=== PATIENT | male | born 1970 | race Caucasian/White ===

== ENCOUNTER → 2018-12-11 | Outpatient (CLI) | payer BC ==
--- NOTE | 2018-12-11 15:56 | RAD ---
EXAM: AP view of both knees, lateral and tangential patellar views right knee DATE: 12/11/2018 12:00 AM INDICATION: Knee pain COMPARISON: No Prior FINDINGS: Right knee: No evidence of acute fracture or dislocation. Joint spaces are preserved without significant degenerative/proliferative change. Neutral patellar tracking. Physiologic joint fluid right knee. Single AP view left knee demonstrates no evidence for acute fracture or dislocation. Joint spaces are grossly preserved. IMPRESSION: 1. No evidence of acute fracture or dislocation. 2. Joint spaces are preserved without significant degenerative/proliferative change. Electronically signed by: Farhat Ackerman MD (12/11/2018 3:53 PM) [facility]
== END | disposition home or self-care (01) ==
LOC: RAD 13:03
PROVIDERS: ATTEND Orthopaedic Surgery Sports Medicine
DX: M25.561 Pain in right knee (principal)
CPT/HCPCS: 73560; 73565